=== PATIENT | female | born 1935 | race Caucasian/White ===

== ENCOUNTER 2021-11-27 05:16 | Inpatient (IN) | payer MEDICAID, OTHER ==
[2021-11-27] VITALS (51 sets, daily range): BP systolic 65–172; BP diastolic 42–86
[~2021-11-27] VITALS: Ht 165.1 cm; Wt 69.5 kg
[~2021-11-27 05:16] MED LIST: SODIUM CHLORIDE 0.9% 1,000 ML IV SCH
[2021-11-27] MEDS ORDERED: LIDOCAINE HCL/EPINEPHRINE 1%-EPI 1:100,000 20 ML VIAL ONE (06:23)
[2021-11-27] MEDS ORDERED: LOSA100T3 PO (06:24)
[2021-11-27] MEDS ORDERED: ATOR10TA69 PO (06:24)
[2021-11-27] MEDS ORDERED: OMEP20TA2 PO (06:24)
[2021-11-27] MEDS ORDERED: METO-411 PO (06:24)
[2021-11-27] MEDS ORDERED: POTA20LI52 PO (06:24)
[2021-11-27] MEDS ORDERED: POLYMYXIN B SULFATE 500000 UNITS/VIAL ONE (06:24)
[2021-11-27] MEDS ORDERED: CHLO25TA2 PO (06:24)
[2021-11-27] MEDS ORDERED: BACITRACIN 15GM TUBE TOP ONE (06:24)
[2021-11-27] MEDS ORDERED: THROMBIN (BOVINE) 5000 UNITS/VIAL TOP ONE (06:25)
[2021-11-27] MEDS ORDERED: GENTAMICIN SULF 40MG/ML 2ML VIAL ONE (06:41)
[2021-11-27] MEDS ORDERED: ROCURONIUM BROMIDE 10MG/ML VIAL 5ML IV ONE (07:28)
[2021-11-27] MEDS ORDERED: DEXAMETHASONE 4MG/ML 1ML VIAL ONE (08:06)
[2021-11-27] MEDS ORDERED: CEFAZOLIN SODIUM 1000MG/VIAL ONE (08:06)
[2021-11-27] MEDS ORDERED: GLYCOPYRROLATE 0.2 MG/ML 2ML VIAL ONE ×2 (08:06→09:22)
[2021-11-27] MEDS ORDERED: HYDRALAZINE 20MG/ML VIAL ONE ×2 (08:06→09:31)
[2021-11-27] MEDS ORDERED: CALCIUM CHLORIDE 1GM/10ML SYR IV ONE ×2 (08:09→08:40)
[2021-11-27] MEDS ORDERED: ALBUMIN HUMAN 25GM/100ML (25%) IV ONE ×2 (08:09→08:40)
[2021-11-27] MEDS ORDERED: HYDROMORPHONE HCL/PF 2MG/ML (OR) ONE (08:19)
[2021-11-27] MEDS ORDERED: NEOSTIGMINE METHYLSULFATE 1MG/ML 10 ML VIAL ONE (09:22)
[2021-11-27] MEDS ORDERED: MEPERIDINE HCL/PF 25MG/ML CPJ IV PRN (10:00)
[2021-11-27] MEDS ORDERED: ONDANSETRON HCL 4MG/2ML INJ IV PRN (10:00)
[2021-11-27] MEDS: HYDROMORPHONE HCL/PF 2MG/ML CPJ IV PRN ×4 (10:00→10:35)
[2021-11-27] MEDS ORDERED: LABETALOL 5MG/ML SYR 20 MG/4 ML SYRINGE IV PRN (10:00)
[2021-11-27] MEDS: DEXT 5%/LACTATED RINGERS 1,000 ML IV SCH ×2 (10:18→18:20)
[2021-11-27] MEDS ORDERED: NALOXONE HCL 0.4MG/ML VIAL IV PRN (12:15)
[2021-11-27] MEDS ORDERED: CEFAZOLIN SODIUM 1000MG/VIAL IV SCH (14:00)
[2021-11-27] MEDS: CEFAZOLIN 1000MG PREMIX 50 ML IV SCH ×2 (14:08→22:53)
[2021-11-27] MEDS: PANTOPRAZOLE SODIUM 40 MG/VIAL IV SCH (14:08)
[2021-11-27] MEDS: NICARDIPINE 100 MG in SODIUM CHLORIDE 0.9% 60 ML IV PRN (14:09)
[2021-11-27] MEDS: MORPHINE SULFATE 4 MG/ML CPJ (NOT FOR IM USE) IV PRN (17:38)
[2021-11-27] MEDS ORDERED: IPRATROPIUM/ALBUTEROL 0.5-3(2.5)MG/3ML NEB HHN PRN (18:45)
[2021-11-27] MEDS ORDERED: BISACODYL 5MG TABLET PO PRN (18:45)
[2021-11-27] MEDS: ATORVASTATIN CALCIUM 10MG TABLET PO SCH (21:00)
[2021-11-28] VITALS (66 sets, daily range): BP systolic 99–170; BP diastolic 43–75
[2021-11-28] MEDS: DEXT 5%/LACTATED RINGERS 1,000 ML IV SCH ×3 (03:00→23:33)
[2021-11-28] MEDS: MORPHINE SULFATE 4 MG/ML CPJ (NOT FOR IM USE) IV PRN ×4 (03:00→10:25)
[2021-11-28 06:19] LABS: HEMATOCRIT. 28.1 % (36.0-48.0); HEMOGLOBIN. 9.7 g/dL (12.0-16.0); LYMPHOCYTES % 8.7 % (20.0-50.0); MEAN CORPUSCULAR HEMOGLOBIN 31.4 pg (28.0-32.0); MEAN CORPUSCULAR VOLUME 91.3 fL (81.0-99.0); MEAN PLATELET VOLUME 9.2 fl (7.4-10.4); MONOCYTES % 7.7 % (2.0-8.0); NEUTROPHILS % 83.6 % (40.0-76.0); PLATELET 157 x1000/uL (130-400); RED BLOOD CELL COUNT 3.08 mill/uL (4.2-5.4); RED CELL DISTRIBUTION WIDTH 13.1 % (11.6-14.6)
[2021-11-28 06:49] LABS: CHLORIDE 106 mEq/L (98-107)
[2021-11-28 06:52] LABS: INR 1.1; PARTIAL THROMBOPLASTIN TIME 27.1 sec (23.4-31.0); PROTHROMBIN TIME 11.5 sec (9.6-11.0)
[2021-11-28 06:56] LABS: PHOSPHORUS 2.9 mg/dL (2.5-4.9)
[2021-11-28 06:58] LABS: LDL CHOLESTEROL 42 mg/dL (5-100)
[2021-11-28 06:59] LABS: HDL CHOLESTEROL 43 mg/dL (40-59)
[2021-11-28] MEDS: NICARDIPINE 100 MG in SODIUM CHLORIDE 0.9% 60 ML IV PRN ×2 (06:59→08:35)
[2021-11-28] MEDS: CEFAZOLIN 1000MG PREMIX 50 ML IV SCH ×3 (07:12→21:14)
[2021-11-28] MEDS: PANTOPRAZOLE SODIUM 40 MG/VIAL IV SCH (08:31)
[2021-11-28] MEDS: METOPROLOL TARTRATE 50MG TABLET PO SCH ×2 (08:31→21:00)
[2021-11-28] MEDS: LOSARTAN POTASSIUM 100 MG TABLET PO SCH (08:31)
[2021-11-28] MEDS: AMLODIPINE 5MG TABLET PO SCH (11:34)
[2021-11-28] MEDS: CLONIDINE 0.1MG TABLET PO PRN (11:34)
[2021-11-28] MEDS ORDERED: MAGNESIUM 2 G PREMIX 50 ML IV NR (13:00)
[2021-11-28] MEDS ORDERED: MORPHINE SULFATE 2 MG/ML CPJ (NOT FOR IM USE) IV PRN (17:00)
[2021-11-28] MEDS: ATORVASTATIN CALCIUM 10MG TABLET PO SCH (21:13)
[2021-11-29] VITALS: BP 141/66
[2021-11-29 04:00] VITALS: BP 133/61
[2021-11-29] MEDS: CEFAZOLIN 1000MG PREMIX 50 ML IV SCH (05:15)
[2021-11-29 08:00] VITALS: BP 140/63
[2021-11-29 08:50] LABS: BASOPHILS % 0.2 % (0.0-2.0); EOSINOPHILS % 0.2 % (0.0-5.0); HEMATOCRIT. 26.9 % (36.0-48.0); HEMOGLOBIN. 9.5 g/dL (12.0-16.0); LYMPHOCYTES % 14.1 % (20.0-50.0); MEAN CORPUSCULAR VOLUME 90.8 fL (81.0-99.0); MEAN PLATELET VOLUME 9.5 fl (7.4-10.4); MONOCYTES % 10.8 % (2.0-8.0); NEUTROPHILS % 74.7 % (40.0-76.0); PLATELET 131 x1000/uL (130-400); RED BLOOD CELL COUNT 2.96 mill/uL (4.2-5.4); RED CELL DISTRIBUTION WIDTH 13.2 % (11.6-14.6)
[2021-11-29 09:18] LABS: CHLORIDE 100 mEq/L (98-107)
[2021-11-29] MEDS ORDERED: POTASSIUM CHLORIDE 20MEQ TABLET SR PO NR (09:30)
[2021-11-29] MEDS: PANTOPRAZOLE SODIUM 40 MG/VIAL IV SCH (09:40)
[2021-11-29] MEDS: LOSARTAN POTASSIUM 100 MG TABLET PO SCH (09:41)
[2021-11-29] MEDS: METOPROLOL TARTRATE 50MG TABLET PO SCH ×2 (09:41→20:38)
[2021-11-29] MEDS: AMLODIPINE 5MG TABLET PO SCH (09:41)
[2021-11-29] MEDS: DEXT 5%/LACTATED RINGERS 1,000 ML IV SCH ×2 (09:43→19:45)
[2021-11-29] MEDS ORDERED: HYDROCODONE/ACETAMINOPHEN 5/325MG TABLET PO PRN (10:45)
[2021-11-29] MEDS: TRAMADOL 50MG TABLET PO PRN (11:03)
[2021-11-29 12:00] VITALS: BP 154/68
[2021-11-29 16:00] VITALS: BP 126/55
[2021-11-29 20:00] VITALS: BP 139/60
[2021-11-29] MEDS: ATORVASTATIN CALCIUM 10MG TABLET PO SCH (20:38)
[2021-11-30] VITALS: BP 141/63
[2021-11-30 04:00] VITALS: BP 162/81
[2021-11-30] MEDS: DEXT 5%/LACTATED RINGERS 1,000 ML IV SCH (05:13)
[2021-11-30] MEDS: ACETAMINOPHEN 500MG TABLET PO PRN ×2 (05:29→22:00)
[2021-11-30 06:25] LABS: BASOPHILS % 0.1 % (0.0-2.0); EOSINOPHILS % 0.1 % (0.0-5.0); HEMATOCRIT. 28.6 % (36.0-48.0); LYMPHOCYTES % 18.7 % (20.0-50.0); MEAN CORPUSCULAR HEMOGLOBIN 31.4 pg (28.0-32.0); MEAN CORPUSCULAR VOLUME 89.8 fL (81.0-99.0); MEAN PLATELET VOLUME 9.6 fl (7.4-10.4); NEUTROPHILS % 72.1 % (40.0-76.0); PLATELET 132 x1000/uL (130-400); RED BLOOD CELL COUNT 3.18 mill/uL (4.2-5.4)
[2021-11-30 06:41] LABS: CHLORIDE 92 mEq/L (98-107)
[2021-11-30 08:00] VITALS: BP 152/70
[2021-11-30] MEDS: METOPROLOL TARTRATE 50MG TABLET PO SCH ×2 (09:00→21:11)
[2021-11-30] MEDS: FAMOTIDINE 20MG TABLET PO SCH (09:00)
[2021-11-30] MEDS: LOSARTAN POTASSIUM 100 MG TABLET PO SCH (09:00)
[2021-11-30] MEDS: AMLODIPINE 5MG TABLET PO SCH (09:01)
[2021-11-30] MEDS ORDERED: POTASSIUM CHLORIDE 20MEQ TABLET SR PO NR (10:00)
[2021-11-30] MEDS: ONDANSETRON HCL 4MG/2ML INJ IV PRN (13:23)
[2021-11-30] MEDS: CLONIDINE 0.1MG TABLET PO PRN (13:24)
[2021-11-30 16:00] VITALS: BP 120/60
[2021-11-30 20:00] VITALS: BP 132/64
[2021-11-30] MEDS: ATORVASTATIN CALCIUM 10MG TABLET PO SCH (21:11)
[2021-12-01] VITALS: BP 132/63
[2021-12-01] MEDS: TRAMADOL 50MG TABLET PO PRN ×2 (00:01→09:17)
[2021-12-01 04:00] VITALS: BP 137/63
[2021-12-01] MEDS: ACETAMINOPHEN 500MG TABLET PO PRN (05:19)
[2021-12-01 06:31] LABS: BASOPHILS % 0.2 % (0.0-2.0); EOSINOPHILS % 0.3 % (0.0-5.0); HEMATOCRIT. 28.4 % (36.0-48.0); MEAN CORPUSCULAR HEMOGLOBIN 31.8 pg (28.0-32.0); MEAN CORPUSCULAR VOLUME 89.9 fL (81.0-99.0); MEAN PLATELET VOLUME 9.2 fl (7.4-10.4); NEUTROPHILS % 62.5 % (40.0-76.0); PLATELET 138 x1000/uL (130-400); RED BLOOD CELL COUNT 3.16 mill/uL (4.2-5.4); RED CELL DISTRIBUTION WIDTH 13.1 % (11.6-14.6)
[2021-12-01 06:32] LABS: CHLORIDE 89 mEq/L (98-107)
[2021-12-01 08:26] VITALS: BP 153/71
[2021-12-01] MEDS: FAMOTIDINE 20MG TABLET PO SCH (09:16)
[2021-12-01] MEDS: AMLODIPINE 5MG TABLET PO SCH (09:16)
[2021-12-01] MEDS: LOSARTAN POTASSIUM 100 MG TABLET PO SCH (09:16)
[2021-12-01] MEDS: METOPROLOL TARTRATE 50MG TABLET PO SCH ×2 (09:17→20:35)
[2021-12-01] MEDS ORDERED: POTASSIUM CHLORIDE 20MEQ/PACKET PO NR (11:00)
[2021-12-01] MEDS: HYDROMORPHONE HCL/PF 2MG/ML CPJ IV PRN ×2 (11:03→20:44)
[2021-12-01 12:16] VITALS: BP 121/55
[2021-12-01] MEDS ORDERED: GADOTERATE MEGLUMINE 5 MMOL/10 ML VIAL IV ONE (13:08)
[2021-12-01 16:59] VITALS: BP 154/70
[2021-12-01] MEDS: ONDANSETRON HCL 4MG/2ML INJ IV PRN (18:18)
[2021-12-01] MEDS: CLONIDINE 0.1MG TABLET PO PRN (18:18)
[2021-12-01 20:00] VITALS: BP 151/66
[2021-12-01] MEDS: ATORVASTATIN CALCIUM 10MG TABLET PO SCH (20:35)
[2021-12-02] VITALS: BP 141/77
[2021-12-02 04:00] VITALS: BP 137/67
[2021-12-02 08:00] VITALS: BP 136/65
[2021-12-02] MEDS: FAMOTIDINE 20MG TABLET PO SCH (08:56)
[2021-12-02] MEDS: LOSARTAN POTASSIUM 100 MG TABLET PO SCH (08:56)
[2021-12-02] MEDS: METOPROLOL TARTRATE 50MG TABLET PO SCH (08:56)
[2021-12-02 09:58] VITALS: BP 136/65
[2021-12-02] MEDS: HYDROMORPHONE HCL/PF 2MG/ML CPJ IV PRN (11:55)
[2021-12-02] MEDS: AMLODIPINE 5MG TABLET PO SCH (11:55)
[2021-12-02 12:00] VITALS: BP 144/68
== END 2021-12-02 13:14 | disposition home or self-care (01) | DRG 321 ==
LOC: OR 05:16 → MICUSO 05:17 → 6EST 11-28 16:44
PROVIDERS: ADMIT Neurological Surgery; ATTEND Neurological Surgery
PROC: 0RG2071 Fusion of 2 or more Cervical Vertebral Joints with Autologous Tissue Substitute, Posterior Approach, Posterior Column, Open Approach (ICD-10-PCS; principal; 2021-11-27)
PROC: 01N10ZZ Release Cervical Nerve, Open Approach (ICD-10-PCS; 2021-11-27)
PROC: 4A11X4G Monitoring of Peripheral Nervous Electrical Activity, Intraoperative, External Approach (ICD-10-PCS; 2021-11-27)
DX: M47.12 Other spondylosis with myelopathy, cervical region (principal); G82.50 Quadriplegia, unspecified; M47.22 Other spondylosis with radiculopathy, cervical region; M48.02 Spinal stenosis, cervical region; E78.5 Hyperlipidemia, unspecified; I10 Essential (primary) hypertension; K21.9 Gastro-esophageal reflux disease without esophagitis; G56.00 Carpal tunnel syndrome, unspecified upper limb; D64.9 Anemia, unspecified; R73.03 Prediabetes; Z20.822 Contact with and (suspected) exposure to COVID-19
CPT/HCPCS: 36415; 71045; 72040; 72141; 72156; 76000; 80048; 80053; 80061; 83036; 83735; 84100; 84132; 85025; 86850; 86900; 87426; 88305; 88311; 93970; 95925; 95926; 95928; 95929; 97110; 97162; 97166; A9577; C1713; C9113; J0360; J0690; J1100; J1170; J1580; J2270; J2405; J2710; J3475; J3490; J7050; J7121; L0172; P9047

== ENCOUNTER → 2023-05-12 | Day surgery (SDC) | payer MEDICAID ==
[~2023-05-12] VITALS: Ht 152.4 cm; Wt 62.1 kg
[~2023-05-12] MED LIST changes: +ACETYLCHOLINE CHLORIDE INTRAOCULAR SOLUTION 1:100 ELECTROLYTE DILUENT IO ONE; +AMLO5TAB88 PO; +ATOR10TA69 PO; +BALANCED SALT IRRIG SOLN 15ML ONE; +BUPIVACAINE HCL/PF 0.75% (7.5MG/ML) 10ML ONE; +CHLO25TA2 PO; +CIPROFLOXACIN 0.3% OPHTH SOLN 2.5ML ONE; +FAMO40TA7 PO; +FENTANYL CITRATE/PF 50MCG/ML 2ML VIAL ONE; +HYDROMORPHONE HCL/PF 2MG/ML CPJ IV PRN; +LABETALOL 5MG/ML SYR 20 MG/4 ML SYRINGE IV PRN; +LACTATED RINGERS 1,000 ML IV SCH; +LIDOCAINE HCL 2%/EPINEPHRINE 1:100,000 20 ML VIAL INFIL ONE; +LOSA100T33 PO; +LOSA100T4 PO; +MEPERIDINE HCL/PF 25MG/ML CPJ IV PRN; +METO-411 PO; +METO100T16 PO; +MIDAZOLAM HCL 2 MG/2 ML VIAL ONE; +NEO/POLYMYX B SULF/DEXAMETH OPHTH OINT 3.5GM ONE; +OMEP20TA23 PO; +ONDANSETRON HCL 4MG/2ML INJ IV PRN; +POTA10CA43 PO; +POTA20LI52 PO; +PREDNISOLONE ACETATE 1% OPHTH DROPS 5ML ONE; -SODIUM CHLORIDE 0.9% 1,000 ML IV SCH; +TETRACAINE 0.5% OPHTH DROPS 4ML ONE
== END | disposition home or self-care (01) ==
LOC: OR 08:22
PROVIDERS: ATTEND Ophthalmology
DX: H40.89 Other specified glaucoma (principal); I10 Essential (primary) hypertension; E78.00 Pure hypercholesterolemia, unspecified; K21.9 Gastro-esophageal reflux disease without esophagitis; Z87.891 Personal history of nicotine dependence; Z79.899 Other long term (current) drug therapy; Z98.890 Other specified postprocedural states; Z88.5 Allergy status to narcotic agent; Z88.8 Allergy status to other drugs, medicaments and biological substances; Z82.49 Family history of ischemic heart disease and other diseases of the circulatory system
CPT/HCPCS: 66170; J2250; J3010; J3490